=== PATIENT | male | born 1995 | race American Indian/Alaskan Native ===

== ENCOUNTER 2019-12-17 05:09 | Emergency (ER) | payer SELFPAY ==
--- NOTE | 2019-12-17 07:42 | Emergency Department Report ---
Chief Complaint: Dizziness Stated Complaint: FEELING FAINT Time Seen by Provider: 12/17/19 07:35 - HPI History of Present Illness: This is a 24-year-old male with no prior medical conditions who presents the ED today complaining of a weird feeling that is been going on intermittently for the past 3 weeks. Patient described as feeling as of agrawal that comes to her body and leads to heavy breathing or fast heartbeat and shaking of her hands. Patient states sometimes most likely this happens in the morning. Patient states she takes no medication and has no medical history. Patient states that she had another episode this morning so she wanted to come to the ER to be evaluated. Patient denies fever/chills/nausea vomiting/chest pain/shortness of breath/headache/blurry vision/syncope - ROS Review of Systems: As noted in HPI - Exam Vital Signs: Vital Signs 12/17/19 05:18 Temperature 97.9 F Pulse Rate 70 Respiratory 18 Rate Blood Pressure 111/68 O2 Sat by Pulse 97 Oximetry Physical Exam: GENERAL: Alert and oriented x3, no apparent distress, Normal Gait, atraumatic. HEAD: Head is normocephalic and a-traumatic. LUNGS: Symetrical with respiration, No wheezing, no rales or crackles, CTAB. HEART: S1, S2 present, regular rate and rhythm without murmur, no rubs, no gallops. Non tender to palpation EXTREMITIES/MUSCULOSKELETAL: No cyanosis, clubbing, rash, lesions or edema. Full ROM bilaterally. NEUROLOGIC: The patient is cooperative with no focal neurologic deficits. SKIN: Warm and dry, No lesions, No ulceration or induration present. MSE screening note: Focused history and physical exam performed. Due to findings the following was ordered: ED Medical Decision Making - Medical Decision Making This 24-year-old male who presents with most likely symptoms of panic/anxiety disorder. I discussed with patient that most times these are episodes are triggered. I discussed with the patient to follow-up with her therapist. Referrals given to patient. Also discussed with patient to follow-up with her primary care physician. Vital signs are normal. Patient is in no acute distress. ED Disposition for MSE Clinical Impression: Panic attack Disposition: DC-01 TO HOME OR SELFCARE Is pt being admited?: No Does the pt Need Aspirin: No Condition: Stable Instructions: Anxiety (ED), Panic Disorder (ED) Additional Instructions: Make sure to follow up with the primary care physician as discussed. If you have any worsening symptoms or develop new symptoms please return to ED immediately. Referrals: PRIMARY CARE, [Primary Care Provider] - 3-5 Days [facility] [Outside] - 3-5 Days [facility] [Outside] - 3-5 Days [facility] [Provider Group] - 3-5 Days Forms: Work/School Release Form(ED) Time of Disposition: 07:47
[2019-12-17 07:57] VITALS: BP 107/67
== END 2019-12-17 07:56 | disposition home or self-care (01) ==
LOC: ED 05:09
DX: F41.0 Panic disorder [episodic paroxysmal anxiety] (principal); Z88.8 Allergy status to other drugs, medicaments and biological substances
CPT/HCPCS: 99282